=== PATIENT | female | born 1985 ===

== ENCOUNTER 2018-06-12 19:12 | Emergency (ER) | payer BC ==
[2018-06-12 19:21] VITALS: BP 113/74; PULSE 71; RESP 16; TEMP 97.9; O2SAT 99
[2018-06-12] MEDS ORDERED: Sodium Chloride 0.9% 1,000 ML IV STA (20:03)
[2018-06-12 20:36] LABS: SQUAMOUS EPITHIAL 3 /hpf (0-5); URINE BILIRUBIN NEGATIVE (NEGATIVE); URINE BLOOD SMALL (NEGATIVE); URINE CLARITY SLIGHTY-CLOUDY (Clear); URINE COLOR YELLOW (YELLOW); URINE GLUCOSE (UA) NEG (NEGATIVE); URINE LEUKOCYTE ESTERASE NEG Leu/uL (Negative); URINE PROTEIN NEGATIVE (NEGATIVE); URINE UROBILINOGEN 0.2-1.0 mg/dL (0.2-1.0)
--- NOTE | 2018-06-12 21:01 | ED PDOC ---
HPI: Abdomen Time Seen by Provider: 06/12/18 19:23 Chief Complaint (Nursing): Abdominal Pain Chief Complaint (Provider): Abdominal Pain History Per: Patient History/Exam Limitations: no limitations Onset/Duration Of Symptoms: Days (x 3) Current Symptoms Are (Timing): Still Present Quality Of Discomfort: "Pain" Associated Symptoms: Nausea, Diarrhea. denies: Vomiting Additional Complaint(s): 33 year old female with no medical history presents to the ED with abdominal pain associated with nausea and diarrhea for 3 days. Patient reports 5 episodes of non bloody diarrhea. Denies vomiting, fever, cough, shortness of breath and chest pain. PMD: none provided Past Medical History Reviewed: Historical Data, Nursing Documentation, Vital Signs Vital Signs: Last Vital Signs Temp 97.9 F 06/12/18 19:19 Pulse 71 06/12/18 19:19 Resp 16 06/12/18 19:19 BP 113/74 06/12/18 19:19 Pulse Ox 99 06/12/18 19:19 - Medical History PMH: No Chronic Diseases - Surgical History Surgical History: No Surg Hx - Family History Family History: States: Unknown Family Hx - Social History Current smoker - smoking cessation education provided: No Alcohol: None Drugs: Denies - Home Medications Home Medications: Ambulatory Orders Medication Instructions Recorded Dicyclomine [Bentyl] 20 mg PO Q12 PRN #20 tab 06/12/18 Esomeprazole Magnesium [Nexium] 20 mg PO QAM #10 ecc 06/12/18 Ondansetron ODT [Zofran ODT] 4 mg PO Q6 PRN #16 odt 06/12/18 - Allergies Allergies/Adverse Reactions: Allergies Allergy/AdvReac Type Severity Reaction Status Date / Time No Known Allergies Allergy Verified 06/12/18 19:18 Review of Systems ROS Statement: Except As Marked, All Systems Reviewed And Found Negative Constitutional: Negative for: Fever Cardiovascular: Negative for: Chest Pain Respiratory: Negative for: Cough, Shortness of Breath Gastrointestinal: Positive for: Nausea, Abdominal Pain, Diarrhea. Negative for: Vomiting Physical Exam - Reviewed Nursing Documentation Reviewed: Yes Vital Signs Reviewed: Yes - Physical Exam Appears: Positive for: Non-toxic, No Acute Distress Head Exam: Positive for: ATRAUMATIC, NORMAL INSPECTION, NORMOCEPHALIC Skin: Positive for: Normal Color, Warm, Dry Eye Exam: Positive for: EOMI, Normal appearance, PERRL Neck: Positive for: Normal, Painless ROM, Supple Cardiovascular/Chest: Positive for: Regular Rate, Rhythm. Negative for: Murmur Respiratory: Positive for: Normal Breath Sounds. Negative for: Respiratory Distress Gastrointestinal/Abdominal: Positive for: Soft, Tenderness (epigastric and RUQ ). Negative for: Guarding Extremity: Positive for: Normal ROM (upper and lower extremities). Negative for: Deformity Neurologic/Psych: Positive for: Alert, Oriented. Negative for: Motor/Sensory Deficits - Laboratory Results Result Diagrams: 06/12/18 20:56 06/12/18 20:56 - ECG O2 Sat by Pulse Oximetry: 99 (RA) Pulse Ox Interpretation: Normal Medical Decision Making Medical Decision Makin:03 Impression: abdominal pain Initial Plan: --CMP --Lipase --Urine dip --Urine preg --CB --NS IV --Pepcid 20 mg IV --Toradol 30 mg IVP --Zofran 4 mg IV --UA --gallbladder US 21:15 Gallbladder US Findings Liver Measures 15.03 cm in length. Normal echogenicity of the liver parenchyma. No mass. No intrahepatic bile duct dilatation. Gallbladder Contracted but appears unremarkable. No gallstones. Common bile duct Measures 2.55 mm. No stones. No dilatation. Pancreas Unremarkable as visualized. No mass. No ductal dilatation. Right kidney Measures 9.47 x 4.27 x 4.37 cm in length. Normal echogenicity. No calculus, mass, or hydronephrosis. Aorta No aneurysmal dilatation. IVC Unremarkable. Other Findings None. Impression Contracted gallbladder with no sludge or stones. 22:25 --Patient reports marked improvement in symptoms. He is stable for discharge. Diagnosis is gastroenteritis. ---- Scribe Attestation: Documented by Kelly Carrizales, acting as a scribe for Spike S Sikand MD Provider Scribe Attestation: All medical record entries made by the Scribe were at my direction and personally dictated by me. I have reviewed the chart and agree that the record accurately reflects my personal performance of the history, physical exam, medical decision making, and the department course for this patient. I have also personally directed, reviewed, and agree with the discharge instructions and disposition. Disposition - Clinical Impression Clinical Impression: Gastroenteritis - Patient ED Disposition Is Patient to be Admitted: No - Disposition Referrals: [facility] [Outside] Disposition Time: 22:25 Condition: STABLE Prescriptions: Dicyclomine [Bentyl] 20 mg PO Q12 PRN #20 tab PRN Reason: abdominal pain/diarrhea Esomeprazole Magnesium [Nexium] 20 mg PO QAM #10 ecc Ondansetron ODT [Zofran ODT] 4 mg PO Q6 PRN #16 odt PRN Reason: Nausea/Vomiting Instructions: Gastroenteritis (ED) Forms: [facility] (Romanian) Print Language: SETSWANA
[2018-06-12 21:03] LABS: BASO % 0.3 % (0.0-2.0); EOS # 0.1 K/uL (0.0-0.7); EOS % 0.7 % (0.0-4.0); HEMOGLOBIN 12.5 g/dL (12.0-16.0); LYMPH % 23.6 % (20.0-40.0); MEAN CELL VOLUME 91.8 fl (81.0-99.0); MEAN CORPUSCULAR HGB CONC 33.8 g/dL (33.0-37.0); MEAN PLATELET VOLUME 8.4 fl (7.2-11.7); MONO # 0.7 K/uL (0.0-0.8); NEUT # 5.7 K/uL (1.8-7.0); NEUT % 67.4 % (50.0-75.0); RBC 4.02 Mil/uL (3.80-5.20); RED CELL DISTRIBUTION WIDTH 13.4 % (11.5-14.5); WHITE BLOOD COUNT 8.4 K/uL (4.8-10.8)
[2018-06-12 21:26] LABS: ALB/GLOB RATIO 1.4 (1.0-2.1); ALBUMIN 4.3 g/dL (3.5-5.0); ALT/SGPT 27 U/L (9-52); AST/SGOT 37 U/L (14-36); BLOOD UREA NITROGEN 10 mg/dl (7-17); CALCIUM 9.4 mg/dL (8.4-10.2); GFR NON-AFRICAN AMERICAN > 60
[2018-06-12 21:59] LABS: LIPASE 155 U/L (23-300)
--- NOTE | 2018-06-13 10:30 | US ---
Date of service: 06/12/2018 HISTORY: RUQ pain COMPARISON: None. TECHNIQUE: Sonographic evaluation of the right upper quadrant of the abdomen. FINDINGS: LIVER: Measures 15.0 cm in length. There is diffuse increased echogenicity of the liver parenchyma. No mass. No intrahepatic bile duct dilatation. GALLBLADDER: The gallbladder is contracted. COMMON BILE DUCT: Measures 2.5 mm. No stones. No dilatation. PANCREAS: Unremarkable as visualized. No mass. No ductal dilatation. RIGHT KIDNEY: Measures 9.4 cm in length. Normal echogenicity. No calculus, mass, or hydronephrosis. AORTA: No aneurysmal dilatation. IVC: Unremarkable. OTHER FINDINGS: None . IMPRESSION: The gallbladder is contracted. Findings could be related to nonfasting status or chronic cholecystitis. If clinically indicated, correlation with HIDA scan may be performed. Diffuse increased echogenicity in the liver may reflect hepatic steatosis however parenchymal infectious/ inflammatory etiologies cannot be entirely excluded. Clinical and laboratory correlation is advised. A preliminary report was provided by [employer].
== END 2018-06-12 22:28 | disposition home or self-care (01) ==
LOC: H.ER 19:12
DX: K52.9 Noninfective gastroenteritis and colitis, unspecified (principal)
CPT/HCPCS: 76705; 80053; 81003; 81025; 83690; 85025; 99283; J1885; J2405; J7030

== ENCOUNTER 2018-10-25 14:56 | Emergency (ER) | payer BC, OTHER ==
[2018-10-25 15:37] VITALS: TEMP 98.2
--- NOTE | 2018-10-25 16:28 | ED PDOC ---
Lower Extremity Pain/Injury Time Seen by Provider: 10/25/18 16:06 Chief Complaint (Nursing): Lower Extremity Problem/Injury Chief Complaint (Provider): Lower Extremity Problem/Injury History Per: Rotor Winder ([id number]) History/Exam Limitations: no limitations Onset/Duration Of Symptoms: Days (x1 week) Additional Complaint(s): Patient is a 33 year old female with complaints of atraumatic pain to her right knee that radiates up to her hip, onset x1 week. She states that pain is worse with movement and when she gets up from a seated position. Patient denies taking any medications [employer], accidents/falls, or past injury or surgery to the right knee. Pain is currently described as aching. No other complaints at present. Denies: SOB, chest pain, prolonged immobility, tobacco abuse, calf pain. PMD: no provider Past Medical History Reviewed: Historical Data, Nursing Documentation, Vital Signs Vital Signs: Last Vital Signs Temp 98.2 F 10/25/18 15:33 Pulse 64 10/25/18 15:33 Resp 16 10/25/18 15:33 BP 127/76 10/25/18 15:33 Pulse Ox 99 10/25/18 15:33 - Medical History PMH: No Chronic Diseases - Surgical History Surgical History: No Surg Hx - Family History Family History: States: Unknown Family Hx - Home Medications Home Medications: Ambulatory Orders Medication Instructions Recorded Dicyclomine [Bentyl] 20 mg PO Q12 PRN #20 tab 06/12/18 Esomeprazole Magnesium [Nexium] 20 mg PO QAM #10 ecc 06/12/18 Ondansetron ODT [Zofran ODT] 4 mg PO Q6 PRN #16 odt 06/12/18 Acetaminophen [Acetaminophen 8 650 mg PO Q8 PRN #21 tablet.er 10/25/18 Hour] Naproxen 500 mg PO BID PRN #20 tab 10/25/18 - Allergies Allergies/Adverse Reactions: Allergies Allergy/AdvReac Type Severity Reaction Status Date / Time No Known Allergies Allergy Verified 10/25/18 15:33 Review of Systems ROS Statement: Except As Marked, All Systems Reviewed And Found Negative Constitutional: Negative for: Fever Musculoskeletal: Positive for: Other (right knee pain) Physical Exam - Reviewed Nursing Documentation Reviewed: Yes Vital Signs Reviewed: Yes - Physical Exam Comments: GENERAL APPEARANCE: Patient is awake, alert, oriented x 3, in no acute distress. SKIN: Warm, dry; (-) cyanosis. CHEST AND RESPIRATORY: (-) rales, (-) rhonchi, (-) wheezes; breath sounds equal bilaterally. Respirations even and nonlabored. HEART AND CARDIOVASCULAR: (-) irregularity NECK: Supple, FROM EXTREMITIES: (+) full ROM of right knee with pain on flexion; (+) minimal t enderness to patella, (+) sensation intact throughout (-) edema, (-) ecchymosis, (-) calf tenderness (-) instability on valgus and varus stress; (-) anterior and posterior drawer sign. Remainder of lower extremity nontender with FROM. NEURO AND PSYCH: Mental status as above. Gait: steady. Speech: clear. (-) facial asymmetry - ECG O2 Sat by Pulse Oximetry: 99 (RA) Pulse Ox Interpretation: Normal Medical Decision Making Medical Decision Making: Time: 1639 Impression: acute right knee pain, likely patellofemoral syndrome Plan: --Toradol 30 mg IM --ROBBY bandage --Re-evaluation 1715 Robby bandage applied by ED RN. NV intact after placement. RICE encouraged. On re-evaluation, patient reports improvement of symptoms. On exam, patient remains AAOx3, in no acute distress. Vitals stable. Lab/Diagnostic results d/w the patient in great detail. Diagnosis of acute knee pain, patellofemoral syndrome d/w the patient. Based on history, exam and diagnostic results, plan will be for outpatient follow up with ortho/clinic. Patient instructed to follow-up with pmd / referral provided / the clinic in 1- 2 days without fail. Advised to take medication as prescribed. Return to the emergency room at any time for any new or worsening symptoms. Patient states she fully agrees with and understands discharge instructions. States that she agrees with the plan and disposition. Verbalized and repeated discharge instructions and plan. I have given the patient opportunity to ask any additional questions. Scribe Attestation: Documented by Douglas Pierce acting as a scribe for Heather Snyder Provider Scribe Attestation: All medical record entries made by the Scribe were at my direction and personally dictated by me. I have reviewed the chart and agree that the record accurately reflects my personal performance of the history, physical exam, medical decision making, and the department course for this patient. I have also personally directed, reviewed, and agree with the discharge instructions and disposition. Disposition - Clinical Impression Clinical Impression: Acute knee pain, Patellofemoral pain syndrome - Patient ED Disposition Is Patient to be Admitted: No Counseled Patient/Family Regarding: Studies Performed, Diagnosis, Need For Followup, Rx Given - Disposition Referrals: Efra Jameson III, MD [Staff Provider] - [facility] [Outside] Disposition: Routine/Home Disposition Time: 17:15 Condition: STABLE Additional Instructions: La atencin mdica de emergencia que recibi hoy se dirigi a andreina sntomas agudos. Si le recetaron algn medicamento, llnelo y tmelo segn las indicaciones. Los sntomas pueden tardar varios woods en resolverse. Regrese al D epartamento de Emergencias si andreina sntomas empeoran, no mejoran o si tiene otros problemas. Comunquese con heredia mdico dentro de 2 woods para paula nueva evaluacin y edil un seguimiento o llame a j luis de los mdicos / clnicas a los que reno sido referido y que figuran en el formulario de Informacin de visita al paciente que se incluye en heredia paquete de martina. Lleve todos los documentos que recibi al momento del martina junto con los medicamentos que est tomando para heredia visita de seguimiento. Nuestro tratamiento no puede reemplazar la atencin mdica continua por parte de un proveedor de atencin primaria (PCP) fuera del departamento de emergencias. Prescriptions: Acetaminophen [Acetaminophen 8 Hour] 650 mg PO Q8 PRN #21 tablet.er PRN Reason: Pain, Moderate (4-7) Naproxen 500 mg PO BID PRN #20 tab PRN Reason: Pain, Moderate (4-7) Instructions: Patellofemoral Pain (DC), How to Use an Elastic Bandage, Knee Pain Forms: [employer] (Slovak) Print Language: ARMENIAN - POA Present On Arrival: None
[2018-10-25 18:05] VITALS: BP 124/74; PULSE 74; RESP 18
[2018-10-26 03:15] VITALS: O2SAT 99
== END 2018-10-25 18:05 | disposition home or self-care (01) ==
LOC: H.ER 14:56
DX: M25.561 Pain in right knee (principal)
CPT/HCPCS: 96372; 99282; J1885